=== PATIENT | female | born 2005 | race Caucasian/White ===

== ENCOUNTER 2025-05-12 16:26 | Emergency (ER) | payer SELFPAY | END 2025-05-12 18:30 | disposition home or self-care (01) | LOC: JD.ED 16:26 | DX: J40 Bronchitis, not specified as acute or chronic (principal); F17.200 Nicotine dependence, unspecified, uncomplicated; Z79.899 Other long term (current) drug therapy | CPT/HCPCS: 71046; 87428; 94640; 99285; J3535; J7620; 99282; A9270-GY ==